=== PATIENT | female | born 1945 | race Caucasian/White ===

== ENCOUNTER → 2019-08-31 12:07 | Outpatient (BNVA) | payer OTHER, SELFPAY | PROVIDERS: Family Provider Family Medicine; PCP Nurse Practitioner Family; Visit Provider Registered Nurse | DX: E11.65 Type 2 diabetes mellitus with hyperglycemia (principal); R30.0 Dysuria; I50.9 Heart failure, unspecified | CPT/HCPCS: 36416; 80053; 80061; 81003; 82044; 82962; 83036; 85025; 87077; 87086; 87186 ==

== ENCOUNTER → 2019-12-09 09:43 | Outpatient (BNVA) | payer MEDICARE, SELFPAY | PROVIDERS: Family Provider Family Medicine; PCP Nurse Practitioner Family; Visit Provider Registered Nurse | DX: I10 Essential (primary) hypertension (principal); E11.65 Type 2 diabetes mellitus with hyperglycemia; E78.5 Hyperlipidemia, unspecified; I50.9 Heart failure, unspecified; I50.812 Chronic right heart failure | CPT/HCPCS: 80053; 80061; 81000; 83036; 85025 ==